=== PATIENT | male | born 1945 | race Caucasian/White ===

== ENCOUNTER 2017-11-27 15:52 | Inpatient (IN) | payer OTHER ==
[~2017-11-27] VITALS: Ht 182.9 cm; Wt 81.6 kg
[2017-11-27] VITALS (7 sets, daily range): BP systolic 145–188; BP diastolic 61–82
[~2017-11-27 15:52] MED LIST: ? ANTIBIOTIC; ALLOPURINOL 30300 M1 PO; AZILECT1 MG; CARBIDOPA-LEVO1 EA10 PO; CELEXA 20 MG TA20 M1; DIABETA 2.5MG2.5 MG; FLAGYL500 M1 PO; GLUCOPHAGE1000 MG; HYDROCODONE-AP1 EACH PO; KEFLEX500 MG PO; LANTUSSOLASTAR SUBQ; LISINOPRIL10 MG; MINIPRIN81 MG; NOVOLOG100 UNIT/1 SUBQ; PRAZOSIN 1 MG CA1 M1 PO; REMERON15 MG PO; TESTOSTERONE IM
[2017-11-27] MEDS ORDERED: BUPROPION XL300 MG PO (16:01)
[2017-11-27] MEDS ORDERED: LANTUS100 UNIT/M SUBQ (16:01)
[2017-11-27 16:22] LABS: ABSOLUTE BASOPHILS 0.1 thou/uL (0.0-0.2); ABSOLUTE EOSINOPHILS 0.1 thou/uL (0.0-0.7); ABSOLUTE LYMPHOCYTES 2.3 thou/uL (0.8-5.3); ABSOLUTE MONOCYTES 0.5 thou/uL (0.0-1.2); ABSOLUTE NEUTROPHILS 6.6 thou/uL (1.6-8.1); BASOPHILS 0.9 %; EOSINOPHILS 0.8 %; LYMPHOCYTES 24.1 %; MCH 30.9 pg (26.0-34.0); MCV 88.3 fL (80.0-100.0); MONOCYTES 4.9 %; MPV 6.2 fl. (7.2-11.1); NUCLEATED RBCS 0 /100WBC; PLATELET COUNT* 172 thou/uL (150-400); POLYS 69.3 %; RBC 4.53 mil/uL (4.50-6.00); RDW-CV 14.3 % (10.5-14.5); WBC 9.6 thou/uL (4.0-11.0)
[2017-11-27 16:30] LABS: ANION GAP 7 mmol/L (7-16); BUN 16 mg/dL (7-18); CHLORIDE 100 mmol/L (98-107); CO2 32 mmol/L (21-32); CREATININE 1.7 mg/dL (0.6-1.3); GLUCOSE 177 mg/dL (70-99); SODIUM 139 mmol/L (136-145)
[2017-11-27 16:34] LABS: APTT 26.4 Seconds (25.0-31.3); INR 1.2; PROTIME 11.2 Seconds (9.20-11.50)
[2017-11-27 16:41] LABS: ALBUMIN 3.7 g/dL (3.4-5.0); ALKALINE PHOSPHATASE 63 U/L (46-116); NT-PRO BRAIN NAT PEPTIDE 210 pg/mL (<300); SGOT 16 U/L (15-37); SGPT 14 U/L (30-65); TOTAL BILIRUBIN 0.6 mg/dL (<0.1-1.0); TOTAL PROTEIN 7.5 g/dL (6.4-8.2); TROPONIN-I LEVEL <0.06 ng/mL (<0.06)
[2017-11-27 17:06] LABS: URINE BILIRUBIN NEGATIVE (Negative); URINE BLOOD NEGATIVE (Negative); URINE CLARITY CLEAR; URINE COLOR YELLOW; URINE GLUCOSE-RANDOM TRACE (Negative); URINE KETONES NEGATIVE (Negative); URINE LEUKOCYTES-REFLEX NEGATIVE (Negative); URINE NITRITE-REFLEX NEGATIVE (Negative); URINE PROTEIN NEGATIVE (Negative); URINE SPECIFIC GRAVITY 1.025 (1.005-1.030); URINE UROBILINOGEN 0.2 E.U./dl (0.2-1.0)
--- NOTE | 2017-11-27 17:56 | NUR ---
FOOD TRAY PROVIDED, TAKING UPSTAIRS WITH PT TO RM
--- NOTE | 2017-11-27 20:00 | NUR ---
PT ADMITTED EARLIER, RECEIVED REPORT AND ASSUMED CARE OF PT, ASSESSMENT COMPLETED. DIABETIC WOUND NOTED TO BOTTOM OF LT FOOT AT BASE OF 5TH TOE. CLEANSED AND BETADINE APPLIED, REDRESSED. TELEMETRY ON SHOWING SR. WILL CONT TO MONITOR AND ASSIST NEEDED.
[2017-11-27] MEDS ORDERED: LANTUS SUBQ (20:26)
[2017-11-27] MEDS ORDERED: HYDROCODON-ACE1 EAC7 PO (20:28)
[2017-11-28] VITALS: BP 137/70
[2017-11-28 04:00] VITALS: BP 149/68
[2017-11-28 05:27] LABS: ABSOLUTE BASOPHILS 0.1 thou/uL (0.0-0.2); ABSOLUTE EOSINOPHILS 0.1 thou/uL (0.0-0.7); ABSOLUTE LYMPHOCYTES 3.9 thou/uL (0.8-5.3); ABSOLUTE MONOCYTES 0.6 thou/uL (0.0-1.2); ABSOLUTE NEUTROPHILS 6.1 thou/uL (1.6-8.1); BASOPHILS 0.9 %; EOSINOPHILS 1.3 %; HEMATOCRIT 37.5 % (42.0-52.0); HEMOGLOBIN 13.2 gm/dL (14.0-18.0); LYMPHOCYTES 35.9 %; MCH 31.1 pg (26.0-34.0); MCHC 35.2 g/dL (28.0-37.0); MCV 88.3 fL (80.0-100.0); MONOCYTES 5.5 %; MPV 6.1 fl. (7.2-11.1); NUCLEATED RBCS 0 /100WBC; PLATELET COUNT* 168 thou/uL (150-400); POLYS 56.4 %; RBC 4.25 mil/uL (4.50-6.00); RDW-CV 13.9 % (10.5-14.5); WBC 10.8 thou/uL (4.0-11.0)
[2017-11-28 05:36] LABS: ALBUMIN 3.1 g/dL (3.4-5.0); CALCIUM 8.7 mg/dL (8.5-10.1); CREATININE 1.5 mg/dL (0.6-1.3); POTASSIUM 3.7 mmol/L (3.5-5.1); TOTAL BILIRUBIN 0.7 mg/dL (<0.1-1.0); TOTAL PROTEIN 6.3 g/dL (6.4-8.2)
[2017-11-28 06:02] LABS: CHOLESTEROL 131 mg/dL (<200); HDL CHOLESTEROL 49 mg/dL (>40); LDL CHOLESTEROL 66 mg/dL (<100); SERUM ASSESSMENT CLEAR; TC:HDL 2.7 Ratio (Not establshd); TRIGLYCERIDE 84 mg/dL (<150); VLDL 17 mg/dL (<40)
--- NOTE | 2017-11-28 06:39 | NUR ---
SLEPT WELL TONIGHT. ASSISTED TO BR WHEN PT ASKED TO DO SELF CARE WITH COLOSTOMY. VOIDING WELL PER URINAL. TELEMETRY CONT TO SHOW SR. ACHIEVED HS GOALS OF REST AND COMFORT. HOURLY ROUNDING OBSERVED. NPO SINCE MN ORDERED.
[2017-11-28 08:00] VITALS: BP 146/71
[2017-11-28 11:35] VITALS: BP 147/75
--- NOTE | 2017-11-28 13:50 | EKG ---
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
--- NOTE | 2017-11-28 14:05 | NUR ---
WOUND NURSE: LEFT FOOT, 5TH METATARSAL DFU MEASURES 0.5 X 0.4 X 0.1 CM. PRESENTS WITH PARTIAL THICKNESS TISSUE LOSS AT TIME OF THIS ASSESSMENT. CONTAINS PINK NONGRANULATING TISSUE IN THE WOUND BED, THERE IS SMALL BUILD UP OF CALLOUS TO THE PERIWOUND TISSUE. CLEANSED WITH SOAP AND WATER, RINSED WITH WATER, THEN PATTED DRY. APPLIED PURACHOLD PLUS AG UNDER BORDERED FOAM. PROCEDURE TOLERATED WELL AND WITHOUT COMPLAINTS OF PAIN. INSTRUCTED ON MEASURES TO PROMOTE HEALING AND PREVENT COMPLICATIONS. PATIENT STATES HE IS BEING TREATED IN [place] BY DR. MAGNOLIA DPM BUT DOES NOT RECALL THE TREATMENT REGIMEN.
--- NOTE | 2017-11-28 14:18 | 2DMMODE ---
[place] [address] 2 D/M-MODE ECHOCARDIOGRAM Name: STEPAN GREGORY Room: [address] IN [facility]#: [id number] Admission: 11/27/17 Attend Phys: Dagoberto Butler Discharge: Date of : 45 Date of Service: 11/28/17 1417 Report #: [id number] THIS REPORT FOR: //name// APPROVED REPORT Study performed: 11/28/2017 10:43:58 EXAM: Comprehensive 2D, Doppler, and color-flow Echocardiogram Patient Location: In-Patient Room #: [facility] Status: routine BSA: 2.04 HR: 70 bpm BP: 149/68 mmHg Rhythm: NSR Other Information Study Quality: Good Indications Abnormal ECG 2D Dimensions LVEF(%): 67.99 (>50%) IVSd: 9.37 (7-11mm) LVOT Diam: 19.98 (18-24mm) LVDd: 41.11 mm PWd: 8.85 (7-11mm) Ascending Ao: 32.63 (22-36mm) LVDs: 25.70 (25-40mm) Aortic Root: 32.62 mm Red's LVEF: 67.99 % Volumes Left Atrial Volume (Systole) LA ESV Index: 17.60 mL/m2 Aortic Valve AoV Peak Zeke.: 1.12 m/s AO Peak Gr.: 5.06 mmHg LVOT Max P.30 mmHg AO Mean Gr.: 2.62 mmHg LVOT Mean P.87 mmHg LVOT Max V: 1.04 m/s AO V2 VTI: 22.31 cm LVOT Mean V: 0.61 m/s ABBI (VTI): 3.04 cm2 LVOT V1 VTI: 21.66 cm Mitral Valve E/A Ratio: 1.12 [place] [address] 2 D/M-MODE ECHOCARDIOGRAM Name: STEPAN GREGORY Room: [address] IN .R.#: [id number] Admission: 11/27/17 Attend Phys: Dagoberto Butler Discharge: Date of : 45 Date of Service: 11/28/17 1417 Report #: [id number] MV Decel. Time: 263.14 ms MV E Max Zeke.: 0.80 m/s MV PHT: 76.31 ms MVA (PHT): 2.88 cm2 TDI E/Lateral E': 7.27 E/Medial E': 8.00 Medial E' Zeke.: 0.10 m/s Lateral E' Zeke.: 0.11 m/s Pulmonary Valve PV Peak Zeke.: 0.90 m/s PV Peak Gr.: 3.21 mmHg Tricuspid Valve TR Peak Gr.: 25.23 mmHg RVSP: 30.00 mmHg Left Ventricle The left ventricle is normal size. There is normal LV segmental wall motion. There is normal left ventricular wall thickness. Left ventricular systolic function is normal. The left ventricular ejection fraction is within the normal range. LVEF is 60-65%. The left ventricular diastolic function is normal. Right Ventricle The right ventricle is normal size. The right ventricular systolic function is normal. Atria The left atrium size is normal. The right atrium size is normal. Aortic Valve The Aortic valve is sclerotic. No aortic regurgitation is present. There is no aortic valvular stenosis. Mitral Valve The mitral valve is normal in structure. Trace mitral regurgitation. No evidence of mitral valve stenosis. Tricuspid Valve The tricuspid valve is normal in structure. Trace tricuspid regurgitation. The RVSP is 30-35 mmHg. Pulmonic Valve The pulmonary valve is normal in structure. Trace [place] [address] 2 D/M-MODE ECHOCARDIOGRAM Name: STEPAN GREGORY Room: [address] IN ..#: [id number] Admission: 11/27/17 Attend Phys: Dagoberto Butler Discharge: Date of : 45 Date of Service: 11/28/17 1417 Report #: [id number] Great Vessels The aortic root is normal in size. IVC is normal in size and collapses with >50% inspiration Pericardium There is no pericardial effusion. <Conclusion> LVEF is 60-65%. The Aortic valve is sclerotic. <ELECTRONICALLY SIGNED> By: Rd Zhao MD, FACC 11/28/[id number] MD, FACC /INF
--- NOTE | 2017-11-28 14:25 | NUR ---
Pt having EEG, CM to assess later
[2017-11-28 16:00] VITALS: BP 138/68
[2017-11-28 16:21] LABS: HEMATOCRIT 38.4 % (42.0-52.0); HEMOGLOBIN 13.4 gm/dL (14.0-18.0)
--- NOTE | 2017-11-28 18:29 | NUR ---
ASSUMED RESPONSIBILITY OF PT THIS AM PT IS ALERT AND ORIENTED BUT FORGETFUL AND CONFUSED AT TIMES FLAT AFFECT TREMORS NOTED DIFFICULTY SWALLOWING AT TIMES SPEECH SAW PT IV FLUIDS CONT TO RAC AT 100/H DENIES ANY PAIN PT EMPTIED COLOSTOMY TODAY VOIDING WITH URINAL NSR ON THE MONITOR BLOOD PRESSURES HIGH AT ONE POINT WHEN UP IN THE CHAIR BUT ORTHOS DONE THIS AM 147/61 LAYING 124/101 SITTING AND 116/68 STANDING DOCTOR NOTIFIED BECAME VERY HIGH WITH THERAPY UP IN THE CHAIR 180S/90S ACCORDING TO PT SBA WITH A CANE CALL LIGHT IN REACH
[2017-11-28 20:31] VITALS: BP 159/67
[2017-11-29] VITALS: BP 127/61
[2017-11-29 02:12] LABS: GLYCOHEMOGLOBIN (HGB A1C) 5.7 % (4.8-5.6)
[2017-11-29 04:00] VITALS: BP 141/63
[2017-11-29 05:18] LABS: ABSOLUTE BASOPHILS 0.1 thou/uL (0.0-0.2); ABSOLUTE EOSINOPHILS 0.2 thou/uL (0.0-0.7); ABSOLUTE LYMPHOCYTES 3.2 thou/uL (0.8-5.3); ABSOLUTE MONOCYTES 0.7 thou/uL (0.0-1.2); ABSOLUTE NEUTROPHILS 5.1 thou/uL (1.6-8.1); HEMATOCRIT 36.1 % (42.0-52.0); HEMOGLOBIN 12.7 gm/dL (14.0-18.0); LYMPHOCYTES 34.6 %; MCH 30.9 pg (26.0-34.0); MCV 88.1 fL (80.0-100.0); MONOCYTES 7.3 %; NUCLEATED RBCS 0 /100WBC; PLATELET COUNT* 152 thou/uL (150-400); POLYS 55.1 %; WBC 9.2 thou/uL (4.0-11.0)
[2017-11-29 05:33] LABS: CALCIUM 8.3 mg/dL (8.5-10.1); CREATININE 1.4 mg/dL (0.6-1.3); POTASSIUM 3.5 mmol/L (3.5-5.1)
--- NOTE | 2017-11-29 07:54 | NUR ---
Pt rested well overnight, sleeping heavily when early am meds administered at 0600. VSS. At 0127, 8-beat run of VT noted per monitor. Rhythm strip posted in chart. Pt asleep at the time. Otherwise pt has been in NSR. No complaints. Will continue to monitor.
[2017-11-29 08:05] VITALS: BP 134/70
[2017-11-29 11:55] VITALS: BP 134/70
[2017-11-29 12:20] VITALS: BP 141/76
[2017-11-29 13:25] VITALS: BP 134/70
[2017-11-29] MEDS ORDERED: VITAMIN D2000 UNIT PO (13:32)
--- NOTE | 2017-11-29 13:57 | NUR ---
PT DC'D HOME WITH ALL BELONGINGS. PT DENIES PAIN OR OTHER DISCOMFORTS. PT DENIES DIZZINESS CURRENTLY. PT INSTRUCTED TO STOP MIDODRONE PER ORDERS. PT ACKNOWLEDGED DISCHARGE INSTRUCTIONS AND MEDICATIONS. IV REMOVED INTACT BEFORE DISMISSAL.
--- NOTE | 2017-12-01 17:50 | CON ---
[address] [address] CONSULTATION Name: STEPAN GREGORY Room: [address] IN .R.#: [id number] Admission: 11/27/17 Attend Phys: Missael Christianson Discharge: 11/29/17 Date of : 45 Report #: [id number] THIS REPORT FOR: //name// CC: Aron Everett. Dagoberto Butler DATE OF SERVICE: 11/28/2017 CARDIOLOGY CONSULTATION HISTORY OF PRESENT ILLNESS: The patient is a 72-year-old single white male who I was asked to see in the hospital today after he complained of being dizzy. The patient has no previous history of heart disease. He has had no previous cardiac consultation. He apparently had a stress test years ago. He has a long history of Parkinson disease, not very active because of his Parkinson disease and uses a cane. 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 He states he was actually doing well until a couple of months ago. He apparently slipped and struck his head. Since then, he has not felt very well. He does have problems with balance. He finally came to the Emergency Room yesterday. He complained of feeling lightheaded, some nausea. He came to the Emergency Room and was admitted. He denies any significant chest pain, shortness of breath, palpitations, vomiting, bleeding. He has had no fever or cough. PAST MEDICAL HISTORY: Otherwise, significant tonsillectomy, cholecystectomy. He has a chronic wound on his right foot and has been going to the wound clinic. He has no history of PAD. He does have a history of diabetes and depression. MEDICATIONS: Consists of Wellbutrin, Sinemet, insulin and prazosin. ALLERGIES: He has intolerance to QUINOLONES, MORPHINE, BACLOFEN, LEVOFLOXACIN. FAMILY HISTORY: Brother had heart disease. SOCIAL HISTORY: He is , lives by himself in [place]. Quit smoking years ago. Occasionally drinks alcohol. REVIEW OF SYSTEMS: He has no history of stroke, asthma, peptic ulcer disease, liver disease. He has chronic kidney disease, no cancer. No chronic skin condition. PHYSICAL EXAMINATION: GENERAL: Elderly male lying in bed, he appeared in no distress. VITAL SIGNS: He had a blood pressure of 140/70, pulse 70, [place] [address] CONSULTATION Name: STEPAN GREGORY Room: [address]#: [id number] Admission: 11/27/17 Attend Phys: Missael Christianson Discharge: 11/29/17 Date of : 45 Report #: [id number] HEENT: He is anicteric. Conjunctivae pink. Mucous membranes moist. NECK: Veins nondistended. No carotid bruits. Neck supple. CHEST: Clear to auscultation. CARDIOVASCULAR: Regular rate and rhythm without murmur. ABDOMEN: Soft, nontender. EXTREMITIES: Had no edema. Posterior tibial pulse 2+ bilaterally. SKIN: Cool and dry. NEUROLOGIC: Nonfocal. LYMPH: No adenopathy. MUSCULOSKELETAL: No joint effusion. PSYCHIATRIC: Mood was depressed. He was slow moving. RADIOLOGICAL DATA: His ECG when he came in yesterday showed a sinus rhythm. There was nonspecific ST segment change. His workup so far, he had multiple chest x-rays including a CT scan of the head without contrast when he arrived yesterday that showed no acute abnormality. His chest x-ray showed normal heart size and clear lung schulte. LABORATORY DATA: Sodium 141, glucose 100, albumin is only 3.1. Troponin 0.06. BNP 210, cholesterol 131, triglyceride 84, HDL 49, LDL 66. TSH 1.3. White blood cell count 10.8, hemoglobin 13.2. Urinalysis, trace glucose. IMPRESSION AND RECOMMENDATIONS: 1. Lightheadedness. Reason unclear. Suspect related to his Parkinson's disease. 2. Elevated blood pressure. If persistent, would consider medications. 3. Diabetes. 4. Parkinson's disease. 5. History of megacolon with previous colostomy in place. 6. History of depression. <ELECTRONICALLY SIGNED> By: Rd Zhao MD, FACC 12/01/17 1750 [address] Zhao MD, FACC /nt
--- NOTE | 2017-12-04 19:10 | EEG ---
[address] [address] EEG STUDY REPORT Name: GREGORYSTEPAN M Room: [address] IN .R.#: [id number] Admission: 11/27/17 Attend Phys: Missael Christianson Discharge: 11/29/17 Date of : 45 Report #: [id number] THIS REPORT FOR: //name// CC: Aron Butler DATE OF SERVICE: 11/28/2017 This patient is being evaluated for dizziness. EEG was done by placing the electrodes by standard 10-20 system of electrode placement. Both referential and sequential montages were used for recording. Background activity in this patient's EEG is about 8 Hz and 30 microvolt. This is a symmetrical activity. The patient went to sleep that is associated with bilaterally symmetrical sleep spindle and vertex sharp waves. Throughout the record, no active epileptiform activity was noticed. IMPRESSION: This patient's electroencephalogram is intermixed with theta range slowing on both sides. That is a nonspecific abnormality, which can occur with dementia, effect of psychotropic medication, drowsiness, encephalopathy, etc. It is a nonspecific finding and therefore, clinical correlation is recommended. <ELECTRONICALLY SIGNED> By: Cuco Helms MD 12/04/17 1910 1832 [id number] Helms MD /nt
--- NOTE | 2017-12-04 19:10 | CON ---
[address] [address] CONSULTATION Name: STEPAN GREGORY [facility] [id number] Admission: 11/27/17 Attend Phys: Missael Christianson Discharge: 11/29/17 Date of : 45 Report #: [id number] THIS REPORT FOR: //name// CC: Aron Butler DATE OF SERVICE: 11/28/2017 ROOM NUMBER: [id number]. HISTORY OF PRESENT ILLNESS: This is a 72-year-old male patient for whom a consultation was requested to evaluate the patient for any neurological etiology for the patient's dizziness. The patient gives a poorly defined history. He said he did not really feel dizzy, but just did not feel right. He is not able to elaborate any further. He does have some history of anxiety, but does not believe that he has panic attacks. At least, he has not been diagnosed with panic attacks. He had these kind of episodes sometime before, but he is not coming up with a good history of how often does it happen and what brings it on. There is no tonic-clonic activity associated with this. He is able to ambulate and does not have any focal deficit. REVIEW OF SYSTEMS: Indicate that he did have some chest pain associated with this. He denies any prior history of stroke. He does indicate that he has been diagnosed with Parkinson disease. From history, it looks like he also have some postural hypotension associated with this Parkinson disease. Whether that is secondary to multisystem atrophy or not is not clear, but he does not give any well-defined history for a multisystem atrophy. He does indicate that he was started on some medications for his postural hypotension, but does not know the name of that medication. He is on carbidopa/levodopa a relatively small dose of 1 p.o. t.i.d. for his Parkinson disease. This patient is also on Wellbutrin. His whole history was taken over a period of time, and it was pretty unstructured, and he was not definite about any of his symptoms. He does have a history of diabetes, and he does have a history of Crohn disease. He had multiple abdominal surgeries in the past. This was his 14-point review of system, which was relevant. He denies any history of seizures in the past. He is not having any significant headache. Review of his prior records indicate that he was here in 2017 and that looks like secondary to GI pathology. PAST MEDICAL HISTORY: Positive for multiple non-neurological problems including Crohn disease and diabetes, but is negative for any primary [employer] problems including any CVA in the past. FAMILY HISTORY: Negative for any early age stroke. SOCIAL HISTORY: [place] [address] CONSULTATION Name: GREGORYSTEPAN Salas Room: [address] IN M.R.#: [id number] Admission: 11/27/17 Attend Phys: Missael Christianson Discharge: 11/29/17 Date of : 45 Report #: [id number] PHYSICAL EXAMINATION: Indicates he is alert. He is responsive. He can follow simple commands. His speech looks intact. He believes his memory and fund of knowledge are at his baseline. His cranial nerve examination 2-12 does not appear to be showing any definite abnormality. Specifically, there does not appear to be any nystagmus. He moves all four extremities, and his strength, sensation, reflexes and tone look symmetrical. He does not have any cerebellar sign or any papilledema. He is a reasonably well-developed individual who does not have any dysmorphic features of eyes, ears and face. His hearing and vision look adequate. His pulses are palpable, and he has no edema, cyanosis or jaundice. Cardiac examination demonstrates unremarkable heart sounds, and there does not appear to be any atrial fibrillation. Respiratory examination showed no respiratory difficulty or rhonchi on either side. His blood pressure was 149/68, respirations 16, pulse is 66 and temperature is 98.3. LABORATORY DATA: Indicates a normal sodium and he did have a vitamin B12 done in 2017 and that was low at 154. His TSH is normal and it was checked this time. He did have some neurological workup done this time, and he had a CT scan of the head that was reviewed and that does not appear to be showing any acute abnormality. IMPRESSION: This patient's symptoms are pretty unstructured and is difficult to make the diagnosis. He does have Parkinson disease and by history has a postural hypotension. He may have multisystem atrophy or what previously was called, Shy-Drager syndrome, but I do not have any confirmation of that. Even if he has that, that will not cause this kind of symptoms he is having until he was started on some medications which can cause anxiety. I do not know what medication he was started for postural hypotension. If possible, we will try to get the records from his neurologist. He indicated that his symptoms were profound when it happened and because of that, I will go ahead and get an MRI and an EEG done. I would repeat his vitamin B12, and since he does have GI issues, I will go ahead and do the vitamin D to further evaluate him. We will see what this workup shows and depending upon that, we will try to arrange further workup as necessary. RECOMMENDATIONS: 1. MRI of the brain. 2. EEG. 3. Repeat the vitamin B12 because the last one was low. 4. We will check vitamin D and try to get the records from his neurologist's office and if possible, talk to her and [place] [address] CONSULTATION Name: STEPAN GREGORY Room: [address] IN M.R.#: [id number] Admission: 11/27/17 Attend Phys: Missael Christianson Discharge: 11/29/17 Date of : 45 Report #: [id number] Thank you very much for allowing me to share in the management of this patient, and I will follow the patient along with you. <ELECTRONICALLY SIGNED> By: Cuco Helms MD 12/04/17 1910 0927 [id number] Helms MD /nt
== END 2017-11-29 13:49 | disposition home or self-care (01) | DRG 305 ==
LOC: M.ERS 15:52 → M.2W 17:08 → M.TBA-ER 17:08 → M.2W 17:54
PROVIDERS: Family Medicine; ADMIT Internal Medicine
DX: I16.1 Hypertensive emergency (principal); N17.9 Acute kidney failure, unspecified; N39.0 Urinary tract infection, site not specified; K50.90 Crohn's disease, unspecified, without complications; I12.9 Hypertensive chronic kidney disease with stage 1 through stage 4 chronic kidney disease, or unspecified chronic kidney disease; E11.621 Type 2 diabetes mellitus with foot ulcer; N18.3 Chronic kidney disease, stage 3 (moderate); G20 Parkinson's disease; F32.9 Major depressive disorder, single episode, unspecified; I16.0 Hypertensive urgency; L97.521 Non-pressure chronic ulcer of other part of left foot limited to breakdown of skin; E78.5 Hyperlipidemia, unspecified; E55.9 Vitamin D deficiency, unspecified; E11.22 Type 2 diabetes mellitus with diabetic chronic kidney disease; Z82.49 Family history of ischemic heart disease and other diseases of the circulatory system; Z93.3 Colostomy status; Z79.4 Long term (current) use of insulin; Z88.5 Allergy status to narcotic agent; Z90.49 Acquired absence of other specified parts of digestive tract; Z88.1 Allergy status to other antibiotic agents; Z88.8 Allergy status to other drugs, medicaments and biological substances